=== PATIENT | male | born 1965 | race Caucasian/White ===

== ENCOUNTER 2016-11-03 15:11 | Emergency (ER) | payer MEDICAID, OTHER ==
[~2016-11-03] VITALS: Wt 88.0 kg
[~2016-11-03 15:11] MED LIST: CEPH-443 PO; IBUP800T25 PO
--- NOTE | 2016-11-03 16:31 | RADRPT ---
PROCEDURE: US Scrotum. CLINICAL INDICATION: pain TECHNIQUE: Multiple sonographic images of the scrotal region were obtained utilizing a linear arra y transducer with grayscale and color-flow and a Doppler imaging. The images were reviewed on a high -resolution PACS workstation. COMPARISON: No prior studies are available for comparison. FINDINGS: The right testicle is well visualized and has a normal echotexture. No focal areas of abnormal echog enicity are visualized. The right testicle measures measures 3.6 cm x 4.3 cm x 2.1 cm. There is norm al color-flow. The right epididymis is visualized and unremarkable in appearance. There is normal co marco antonio-flow. The left testicle is well visualized and has a normal echotexture. No focal areas abnormal echogenic ity are visualized. The left testicle measures measures 3.1 cm x 4.3 cm x 2.5 cm. There is normal co marco antonio-flow. The left epididymis is visualized and is unremarkable in appearance. There is normal color -flow. There are dilated veins of the pampiniform plexus on the left, consistent with varicocele. IMPRESSION: Left varicocele. RPTAT: QQ Physician Sheryl Date Time Electronically viewed and signed by Physician Sheryl on 11/03/2016 16:31 JESICA/
[2016-11-03] MEDS ORDERED: TRAM50TA2 PO (16:58)
--- NOTE | 2016-11-03 17:01 | ERD ---
ER Documentation Chief Complaint Date/Time DATE: 11/03/16 TIME: 17:00 Chief Complaint TESTICULAR DISCOMFORT, ONSET 3 MONTHS, NO SWELLING HPI This is a 51-year-old male who states she has had 3-4 months of right testicle pain. The pain is off and on and last about 2 seconds to 5 minutes. He says the pain is sharp. Patient said he had an ultrasound that showed some type of abnormal vein on his right testicle. The patient did follow-up with the urologist who told him he could have surgery to fix that would cost him $5000 to the patient said "no thank you". The patient says he is pain-free now once it checked out because he is concerned he might get testicle cancer. Has no penile discharge no testicle swelling no pain in the back groin hematuria or dysuria ROS All systems reviewed and are negative except as per history of present illness. Medications Home Meds Active Scripts Tramadol HCl (Tramadol HCl) 50 Mg Tablet, 50 MG PO Q6, #20 TAB Prov:RACHELL MCKEON DO 11/03/16 Ibuprofen* (Ibuprofen*) 800 Mg Tablet, 800 MG PO Q6H Y for PAIN, #30 TAB Prov:LILLIAN TANG PA-C 04/26/15 Cephalexin* (Keflex*) 500 Mg Capsule, 500 MG PO QID for 7 Days, CAP Prov:LILLIAN TANG PA-C 04/26/15 PMhx/Soc Medical and Surgical Hx: pt denies Medical Hx, pt denies Surgical Hx Hx Alcohol Use: No Hx Substance Use: No Smoking Status: Never smoker FmHx Family History: No coronary disease Physical Exam Vitals Vital Signs Date Time Temp Pulse Resp B/P Pulse Ox O2 Delivery O2 Flow Rate FiO2 11/03/16 15:15 97.8 86 17 143/83 97 Physical Exam Const: Well-developed, well-nourished Head: Atraumatic, normocephalic Eyes: Normal Conjunctiva, PERRLA, EOMI, normal sclera, no nystagmus ENT: Normal External Ears, Nose and Mouth, moist mucus membranes. Neck: Full range of motion. No meningismus, no lymphadenopathy. Resp: Clear to auscultation bilaterally, no wheezing, rhonchi, rales Cardio: Regular rate and rhythm, no murmurs, S1 S2 present Abd: Soft, non tender x 4, non distended. Normal bowel sounds, no guarding or rebound, no pulsitile abdominal masses or bruits : The right testicle and left testicle have no palpable masses there is no epididymal tenderness there is no swelling no erythema Skin: No petechiae or rashes, no ecchymosis , no maculopapular rash Back: No midline or flank tenderness Ext: No cyanosis, or edema, FROM x 4, normal inspection, neurovascularly intact x 4 Neur: Awake and alert, STR 5/5 x 4, sensation intact x 4, no focal findings, cerebellum intact Psych: Normal Mood and Affect Procedures/MDM PROCEDURE: US Scrotum. CLINICAL INDICATION: pain TECHNIQUE: Multiple sonographic images of the scrotal region were obtained utilizing a linear array transducer with grayscale and color-flow and a Doppler imaging. The images were reviewed on a high-resolution PACS workstation. COMPARISON: No prior studies are available for comparison. FINDINGS: The right testicle is well visualized and has a normal echotexture. No focal areas of abnormal echogenicity are visualized. The right testicle measures measures 3.6 cm x 4.3 cm x 2.1 cm. There is normal color-flow. The right epididymis is visualized and unremarkable in appearance. There is normal color- flow. The left testicle is well visualized and has a normal echotexture. No focal areas abnormal echogenicity are visualized. The left testicle measures measures 3.1 cm x 4.3 cm x 2.5 cm. There is normal color-flow. The left epididymis is visualized and is unremarkable in appearance. There is normal color-flow. There are dilated veins of the pampiniform plexus on the left, consistent with varicocele. IMPRESSION: Left varicocele. RPTAT: QQ Physician Sheryl Date Time Electronically viewed and signed by Physician Sheryl on 11/03/2016 16: 31 RC/ CC: RACHELL MCKEON DO No evidence of any epididymitis, orchitis, varicocele on the right. We will discharge home with some pain medication and follow-up with his urologist Departure Diagnosis: Primary Impression: Pain in testicle Condition: Stable Patient Instructions: Testicular Pain, Unclear Cause Referrals: MARY VERAS MD, APOSTOLOS A. DO Nov 03, 2016 17:01
== END 2016-11-03 17:11 | disposition home or self-care (01) ==
LOC: FTE 15:11
DX: N50.811 Right testicular pain (principal)
CPT/HCPCS: 76870; Z7502

== ENCOUNTER 2017-03-29 17:39 | Emergency (ER) | END 2017-03-29 22:43 | disposition home or self-care (01) ==

== ENCOUNTER 2018-04-12 08:36 | Emergency (ER) | payer BC, MEDICAID ==
[~2018-04-12] VITALS: Ht 177.8 cm; Wt 88.9 kg
[~2018-04-12 08:36] MED LIST changes: +ALBU8.5H8 INH; +AZIT250T PO; +CETI10CA PO; +GUAI473L22 PO; +IBUP-1542 PO; +IBUP-1544 PO; -IBUP800T25 PO; +TRAM50TA2 PO
[2018-04-12 08:37] VITALS: BP 172/85; PULSE 87; RESP 19; Ht 177.8 cm; Wt 88.9 kg
[2018-04-12] MEDS ORDERED: AMOX1TAB10 PO (09:37)
[2018-04-12] MEDS ORDERED: DIPHTH/TET/ACEL PERTUSS (ADULT) 0.5 ML VIAL IM* ONE (10:00)
--- NOTE | 2018-04-16 14:59 | ERD ---
ER Documentation Chief Complaint Chief Complaint dog bite HPI 52 year presents after being bitten for dog bite yesterday. Patient states that he was in an animal rescue detention when it happened. He was told by an employee there that all the dogs in the detention are immunized against rabies. He is insure if he up to date in his tetanus. Denies full thickness wound, bleeding, drooling, difficulty swallowing, fever, chills, or fatigue. Denies past medical history, allergies, or medications. ROS All systems reviewed and are negative except as per history of present illness. Medications Home Meds Active Scripts Amoxicillin/Potassium Clav (Amox-Clav 875-125 mg Tablet) 875-125 mg Tab, 1 TAB PO BID for dog bite for 7 Days, #14 TAB Prov:ALIS DOLL 04/12/18 Cetirizine Hcl* (Zyrtec*) 10 Mg Capsule, 10 MG PO DAILY, #30 TAB.CHEW Prov:MISBAH CABALLERO NP 03/29/17 Ibuprofen* (Motrin*) 600 Mg Tab, 600 MG PO Q6H PRN for PAIN AND OR ELEVATED TEMP, #30 TAB Prov:MISBAH CABALLERO NP 03/29/17 Guaifenesin-Codeine Phosphate* (Guaifenesin* AC Cough Syrup) 473 Ml Liquid, 10 ML PO Q4H PRN for COUGH, #120 ML Prov:MISBAH CABALLERO NP 03/29/17 Albuterol Sulfate* (Proair HFA*) 8.5 Gm Hfa.aer.ad, 2 PUFF INH Q4H PRN for WHEEZING AND SOB, #1 INHALER Prov:MISBAH CABALLERO NP 03/29/17 Azithromycin* (Zithromax*) 250 Mg Tablet, 250 MG PO .JULIUS DIRECTED, #6 TAB TAKE 500 MG (2 TABS) THE FIRST DAY THEN 250 MG (1 TAB) DAYS 2-5 Prov:MISBAH CABALLERO NP 03/29/17 Tramadol HCl (Tramadol HCl) 50 Mg Tablet, 50 MG PO Q6, #20 TAB Prov:RACHELL MCKEON DO 11/03/16 Ibuprofen* (Ibuprofen*) 800 Mg Tablet, 800 MG PO Q6H PRN for PAIN, #30 TAB Prov:LILLIAN TANG PA-C 04/26/15 Cephalexin* (Keflex*) 500 Mg Capsule, 500 MG PO QID for 7 Days, CAP Prov:LILLIAN TANG PA-C 04/26/15 Allergies Allergies: Coded Allergies: No Known Allergy (Unverified , 03/29/17) PMhx/Soc History of Surgery: No Anesthesia Reaction: No Hx Neurological Disorder: No Hx Respiratory Disorders: No Hx Cardiac Disorders: Yes (HTN) Hx Psychiatric Problems: No Hx Miscellaneous Medical Probl: No Hx Alcohol Use: No Hx Substance Use: No Hx Tobacco Use: No FmHx Family History: No diabetes, No coronary disease, No other Physical Exam Vitals Vital Signs Date Temp Pulse Resp B/P (MAP) Pulse Ox O2 O2 Flow FiO2 Time Delivery Rate 04/12/18 98.2 87 19 172/85 100 08:37 (114) Physical Exam Const: No acute distress ENT: Normal External Ears, Nose and Mouth. Neck: Full range of motion. No meningismus. Resp: Clear to auscultation bilaterally Cardio: Regular rate and rhythm, no murmurs Abd: Soft, non tender, non distended. Normal bowel sounds Skin: Some small abrasions and spots of ecchymoses noted to upper left arm, without edema or erythema. No lacerations, bleeding, or full thickness wounds present. Full ROM of arm. Distal sensation and pulses intact. Neur: Awake and alert Psych: Normal Mood and Affect Results 24 hrs Current Medications Medications Dose Sig/Abhijit Start Time Status Last (Trade) Ordered Route PRN Stop Time Admin Dose Reason Admin Diphtheria/ 0.5 ml ONCE ONCE 04/12/18 DC 04/12/18 Tetanus/Acell IM* 10:00 09:44 Pertussis 04/12/18 10:01 (Adacel) Procedures/MDM 52 year presents after being bitten for dog bite yesterday. Patient states that he was in an animal rescue detention when it happened. He was told by an employee there that all the dogs in the detention are immunized against rabies. He is insure if he up to date in his tetanus. Denies full thickness wound, bleeding, drooling, difficulty swallowing, fever, chills, or fatigue. Considering there was no full thickness wound present, and only some bruising and abrasion, my suspicion for rabies is very low. In addition, rabies in dogs in [place] is very uncommon and the animals in the detention where he got bit are required to have vaccines. Since patient was not up to date on his tetanus, he was given TDAP vaccine. Given rx for augmentin. Patient discharged with strict ER pre cautions and advised to follow up with PMD. All questions answered at discharge. Departure Diagnosis: Primary Impression: Bite by animal Condition: Stable Patient Instructions: Animal Bite, General Referrals: [facility] YOU HAVE RECEIVED A MEDICAL SCREENING EXAM AND THE RESULTS INDICATE THAT YOU DO NOT HAVE A CONDITION THAT REQUIRES URGENT TREATMENT IN THE EMERGENCY DEPARTMENT. FURTHER EVALUATION AND TREATMENT OF YOUR CONDITION CAN WAIT UNTIL YOU ARE SEEN IN YOUR DOCTORS OFFICE WITHIN THE NEXT 1-2 DAYS. IT IS YOUR RESPONSIBILITY TO MAKE AN APPOINTMENT FOR FOLOW-UP CARE. IF YOU HAVE A PRIMARY DOCTOR --you should call your primary doctor and schedule an appointment IF YOU DO NOT HAVE A PRIMARY DOCTOR YOU CAN CALL OUR PHYSICIAN REFERRAL HOTLINE AT IF YOU CAN NOT AFFORD TO SEE A PHYSICIAN YOU CAN CHOSE FROM THE FOLLOWING [facility] [address] [facility]. [facility] [address] [facility] [facility] [address] [facility] [facility] [address] [facility]. [facility] [address]. [facility]. [address] [place] Additional Instructions: FOLLOW UP WITH YOUR PRIMARY CARE PHYSICIAN TOMORROW.Return to this facility if you are not improving as expected. ALIS DOLL Apr 16, 2018 14:59
[2018-05-01] MEDS ORDERED: ALBU8.5H8 INH (14:26)
[2018-05-01] MEDS ORDERED: BENZ-6 PO (14:26)
[2018-05-01] MEDS ORDERED: AZIT250T PO (14:26)
[2018-05-01] MEDS ORDERED: PROM6.2515 PO (14:26)
== END 2018-04-12 10:01 | disposition home or self-care (01) ==
LOC: FTE 08:36
DX: S40.022A Contusion of left upper arm, initial encounter (principal); I10 Essential (primary) hypertension; W54.0XXA Bitten by dog, initial encounter; Y92.9 Unspecified place or not applicable; Z23 Encounter for immunization
CPT/HCPCS: 90471; 90715